=== PATIENT | female | born 1995 | race Caucasian/White ===

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

== ENCOUNTER 2021-01-06 22:29 | Emergency (ER) | payer BC, MEDICAID ==
[2021-01-06] MEDS ORDERED: Sodium Chloride 0.9% 10 ML Syringe FLUSH PRN (22:49)
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
[2021-01-06] MEDS ORDERED: Ondansetron 4 MG/2 ML SDV IV ONE (22:50)
[2021-01-06] MEDS ORDERED: diphenhydrAMINE 50 MG/ML SDV IVPUSH ONE (22:50)
[2021-01-06] MEDS ORDERED: Lactated Ringers 1,000 ML IV ONE (22:50)
[2021-01-06] MEDS ORDERED: Morphine 4 MG/ML Syringe IVPUSH ONE (22:52)
[2021-01-06] MEDS ORDERED: Iopamidol 755 Mg/ML 100 ML Bottle IVPUSH ONE (23:40)
[2021-01-06 23:43] LABS: CHLORIDE,CL 106 mmol/L (98-107); SODIUM,NA 143 mmol/L (136-145)
[2021-01-06 23:44] LABS: ANION GAP 13.5 meq/L (7-15)
[2021-01-06 23:50] VITALS: BP 115/67; PULSE 71
[2021-01-07] MEDS ORDERED: Ketorolac 30 MG/ML SDV IVPUSH ONE (01:30)
== END 2021-01-07 01:43 | disposition home or self-care (01) ==
LOC: LL.ED 22:29
DX: R10.84 Generalized abdominal pain (principal); R11.2 Nausea with vomiting, unspecified
CPT/HCPCS: 36415; 74177; 80053; 81003; 81025; 83605; 83690; 85025; 86140; 96374; 96375; 99284; 99284-25; J1200; J2270; J2405; J7120; Q9967

== ENCOUNTER 2021-01-08 06:38 | Inpatient (IN) | payer BC ==
[2021-01-08] MEDS ORDERED: diphenhydrAMINE 50 MG/ML SDV IVPUSH ONE (06:45)
[2021-01-08] MEDS ORDERED: Lactated Ringers 1,000 ML IV ONE (06:45)
[2021-01-08] MEDS ORDERED: Ondansetron 4 MG/2 ML SDV IV ONE (06:45)
[2021-01-08] MEDS ORDERED: Prochlorperazine 10 MG/2 ML SDV IM ONE (07:03)
[2021-01-08] MEDS ORDERED: HYDROmorphone 1 MG/ML Syringe IVPUSH ONE (07:12)
[2021-01-08 07:49] LABS: CHLORIDE,CL 103 mmol/L (98-107); SODIUM,NA 140 mmol/L (136-145)
[2021-01-08] MEDS ORDERED: Magnesium Sulfate/Water 4 GM in Premix Bag 1 BAG IV ONE (08:23)
[2021-01-08] MEDS ORDERED: Lactated Ringers 1,000 ML IV SCH (08:30)
[2021-01-08] MEDS ORDERED: Ondansetron 4 MG/2 ML SDV IVPUSH ONE (08:31)
[2021-01-08] MEDS ORDERED: Morphine 4 MG/ML Syringe IVPUSH ONE (08:31)
[2021-01-08] MEDS ORDERED: Ketorolac 30 MG/ML SDV IVPUSH ONE (08:32)
[2021-01-08] MEDS: Sodium Chloride 0.9% 10 ML Syringe FLUSH PRN ×3 (08:36→12:17)
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
[2021-01-08] MEDS ORDERED: Dexamethasone 10 MG/ML SDV IVPUSH ONE (09:51)
[2021-01-08] MEDS ORDERED: Metoclopramide 10 MG/2 ML SDV IVPUSH ONE (09:51)
[2021-01-08] MEDS: Morphine 4 MG/ML Syringe IVPUSH SCH ×3 (10:48→17:36)
[2021-01-08] MEDS ORDERED: Naloxone 0.4 MG/ML SDV IVPUSH PRN (11:59)
[2021-01-08] MEDS ORDERED: diphenhydrAMINE 50 MG/ML SDV IVPUSH PRN ×2 (11:59→13:00)
[2021-01-08] MEDS ORDERED: Ondansetron 4 MG/2 ML SDV IVPUSH PRN ×2 (11:59→14:30)
[2021-01-08] MEDS: Pantoprazole 40 MG Vial IVPUSH SCH (12:17)
[2021-01-08] MEDS: NS + KCl 20mEq/L 1,000 ML IV SCH ×2 (12:17→19:01)
[2021-01-08] MEDS ORDERED: Prochlorperazine 10 MG/2 ML SDV IVPUSH PRN (13:00)
[2021-01-08] MEDS ORDERED: diphenhydrAMINE 25 MG Cap PO PRN (13:00)
[2021-01-08] MEDS: Morphine PF 30 MG/30 ML PCA Vial IV PRN (13:45)
[2021-01-09] MEDS: NS + KCl 20mEq/L 1,000 ML IV SCH ×2 (01:46→08:26)
[2021-01-09] MEDS: Morphine PF 30 MG/30 ML PCA Vial IV PRN (01:50)
[2021-01-09 08:01] LABS: CHLORIDE,CL 109 mmol/L (98-107); SODIUM,NA 139 mmol/L (136-145)
[2021-01-09 08:03] LABS: ANION GAP 10.9 meq/L (7-15)
[2021-01-09] MEDS: Pantoprazole 40 MG Vial IVPUSH SCH (08:26)
[2021-01-09 08:33] VITALS: BP 112/68; PULSE 74
[2021-01-09] MEDS ORDERED: Magnesium Oxide 400 MG Tab PO SCH (08:45)
[2021-01-09] MEDS ORDERED: Morphine 2 MG/ML SYRINGE IVPUSH PRN (09:00)
[2021-01-09] MEDS ORDERED: Morphine 4 MG/ML Syringe IVPUSH PRN (09:00)
--- NOTE | 2021-01-09 13:12 | PCM.DCSUM1 ---
Discharge Summary - Discharge Data Discharge Date: 01/09/21 Discharge Disposition: Home, Self-Care 01 Condition: Good - Referral to Home Health Primary Care Physician: PCP Unknown - Discharge Diagnosis/Problem(s) (1) Pancreatitis SNOMED Code(s): 40740040 ICD Code: K85.90 - ACUTE PANCREATITIS WITHOUT NECROSIS OR INFECTION, UNSP Status: Acute Problem Details: Unsure of the cause of her pancreatitis at this time. Still waiting for GGT. Triglycerides are normal. This is completely resolved. Her lipase is back down to normal. Down from [address] scan of the abdomen that was completed in the previous ER visit is unremarkable. Ultrasound of the abdomen is normal. I am unsure of the cause of her pancreatitis at this time. She is a chronic marijuana user but it does not sound like she had cannabinoid hyperemesis prior to the development of this. She does have some chronic abdominal pain. We should consider an EGD upon discharge as well as colonoscopy. Qualifiers: Chronicity: acute Pancreatitis type: idiopathic Acute pancreatitis complication: no infection or necrosis Qualified Code(s): K85.00 - Idiopathic acute pancreatitis without necrosis or infection (2) Hypokalemia SNOMED Code(s): 58912258 ICD Code: E87.6 - HYPOKALEMIA Status: Acute Problem Details: She had mild hypokalemia upon admission of 3.2. She received IV fluids with potassium throughout the night. Her potassium today is 4.8. This is most likely due to nausea and vomiting. We will discharge her home with some supplemental potassium for the next couple of days. Recheck in the clinic. (3) Abdominal pain SNOMED Code(s): 74173666 ICD Code: R10.9 - UNSPECIFIED ABDOMINAL PAIN Status: Acute Problem Details: Abdominal pain from pancreatitis. She also has some chronic abdominal pain. This is resolved after the above therapy treatment for pancreatitis. She should consider an EGD and colonoscopy due to her chronic abdominal pain. Qualifiers: Abdominal location: epigastric Qualified Code(s): R10.13 - Epigastric pain (4) Nausea & vomiting SNOMED Code(s): 77583746 ICD Code: R11.2 - NAUSEA WITH VOMITING, UNSPECIFIED Status: Acute Problem Details: This is completely resolved after the resolution of the pancreatitis. She has not received any antiemetics throughout the night. She has advance her diet from clear liquids to full and she is tolerating it well. We will discharge her home with Zofran. Qualifiers: Vomiting type: unspecified Vomiting Intractability: unspecified Qualified Code(s): R11.2 - Nausea with vomiting, unspecified (5) Hypomagnesemia SNOMED Code(s): 398452431 ICD Code: E83.42 - HYPOMAGNESEMIA Status: Acute Problem Details: Magnesium upon arrival was 1.51.9 on discharge. She received 4 g while she was in the hospital. We will send her home with magnesium for the next couple of days. This is most likely due to the recurrent nausea and vomiting. (6) Total bilirubin, elevated SNOMED Code(s): 023428693661076 ICD Code: R17 - UNSPECIFIED JAUNDICE Status: Acute Problem Details: Her T bili on arrival was 1.3, 1.6 today. Gallbladder ultrasound was unremarkable. This is most likely a transient elevation due to the nausea and vomiting. Have her recheck these in the clinic. - Patient Instructions Diet: Regular Diet as Tolerated, Drink 8-10+ Glasses/Day, No Alcoholic Beverages Other/Special Instructions: Home today. Advance diet as tolerated. Small frequent meals. Nothing rich fatty or spicy. Drink plenty of fluids, especially electrolyte containing materials such as gatorade and or powerade. If you are not urinating every 2 hours you are not drinking enough fluids. Zofran, 1 tablet every 6 hrs as needed for nausea. RX sent to [facility] pharmacy. [place], 1 tablet every 6 hrs with food as needed for pain. Caution sedation and constipation. I would recommend some miralax OTC while taking this mediation. Rx sent to [facility]. Magnesium 1 tablet daily for the next 5 days. Potassium Chloride 1 tablet daily for the next 5 days. Follow up with PCP next week for recheck. Return to the ED if new or worsening symtpoms. - Discharge Plan *PRESCRIPTION DRUG MONITORING PROGRAM REVIEWED*: Not Applicable *COPY OF PRESCRIPTION DRUG MONITORING REPORT IN PATIENT CEDRIC: Not Applicable Prescriptions/Med Rec: Hydrocodone/Acetaminophen [HYDROcodone-Acetaminophen 5-325 MG] 1 each PO Q6HR PRN #10 tab PRN Reason: Pain Potassium Chloride [K-Tab ER] 20 meq PO DAILY #5 tablet.er Magnesium Oxide 400 mg PO DAILY #5 tablet Ondansetron [Ondansetron Odt] 4 mg PO QID PRN #12 tab.rapdis PRN Reason: Nausea/Vomiting Home Medications: Home Meds Hydrocodone/Acetaminophen [HYDROcodone-Acetaminophen 5-325 MG] 1 each PO Q6HR PRN #10 tab 01/09/21 [Rx] Magnesium Oxide 400 mg PO DAILY #5 tablet 01/09/21 [Rx] Ondansetron [Ondansetron Odt] 4 mg PO QID PRN #12 tab.rapdis 01/09/21 [Rx] Potassium Chloride [K-Tab ER] 20 meq PO DAILY #5 tablet.er 01/09/21 [Rx] Patient Handouts: Acute Pancreatitis, [id number], Hypokalemia, Nausea and Vomiting, Adult, [id number], Abdominal Pain, Adult, [id number] Forms: ED Department Discharge Referrals: PCP,Unknown [Primary Care Provider] - - Discharge Summary/Plan Comment DC Time >30 min.: No Total # of Minutes for Discharge Time: 25 - General Info Date of Service: 01/09/21 Admission Dx/Problem (Free Text: Acute pancreatitis idiopathic Nausea vomiting Abdominal pain Hypomagnesemia Hypokalemia. Subjective Update: The patient is slept well throughout the night. She had her morphine [employer] discontinued this morning. She had no nausea or vomiting throughout the night. She has what she relates is some residual soreness to her stomach but really does not have any pain. She has no chest pain or shortness of breath difficulty breathing. No fever no chills. No cough or congestion. No hematuria dysuria urinary frequency. No diarrhea. She has not had a bowel movement for a couple of days but this is not uncommon for her. She does not feel any bloating or distention. She has advanced her diet this morning from clear liquids and had a regular lunch and does not have any new symptoms or difficulty with eating abdominal pain nausea or vomiting. - Patient Data Vitals - Most Recent: Last Vital Signs Temp 98.2 F 01/09/21 08:00 Pulse 74 01/09/21 08:00 Resp 14 01/09/21 08:00 BP 112/68 01/09/21 08:00 Pulse Ox 100 01/09/21 08:00 I&O - Last 24 hours: Intake & Output 01/08/21 01/09/21 01/09/21 22:59 06:59 14:59 Intake Total 1800 240 Balance 1800 240 Lab Results - Last 24 hrs: Laboratory Results - last 24 hr 01/08/21 01/09/21 01/09/21 Range/Units 11:00 07:25 07:25 WBC 15.9 H (4.0-10.2) K/uL RBC 4.14 (3.77-5.09) M/uL Hgb 12.5 D (11.7-15.5) g/dL Hct 37.3 (34.0-46.0) % MCV 90.1 (84.0-98.0) fL MCH 30.2 (28.2-33.3) pg MCHC 33.5 (31.7-36.0) g/dL RDW 12.8 (11.2-14.1) % Plt Count 201 D (150-350) K/uL Neut % (Auto) 77.8 (45.0-80.0) % Lymph % (Auto) 14.8 (10.0-50.0) % [place] % (Auto) 7.2 (2.0-14.0) % Eos % (Auto) 0.1 (0.0-5.0) % Baso % (Auto) 0.1 (0.0-2.0) % Neut # (Auto) 12.39 H (1.40-7.00) K/uL Lymph # (Auto) 2.36 (0.50-3.50) K/uL [place]pton # (Auto) 1.15 H (0.00-1.00) K/uL Eos # (Auto) 0.02 (0.00-0.50) K/uL Baso # (Auto) 0.01 (0.00-0.20) K/uL Sodium 139 (136-145) mmol/L Potassium 4.8 D (3.5-5.1) mmol/L Chloride 109 H (98-107) mmol/L Carbon Dioxide 23.9 (21.0-32.0) mmol/L Anion Gap 10.9 (7-15) meq/L BUN 8 (7-18) mg/dL Creatinine 0.69 (0.51-1.17) mg/dL Est Cr Clr Drug Dosing TNP Estimated GFR (MDRD) > 60 mL/min Glucose 91 (70-99) mg/dL Lactic Acid (0.4-2.0) mmol/L Calcium 8.1 L (8.5-10.1) mg/dL Magnesium 1.9 (1.8-2.4) mg/dL Total Bilirubin 1.6 H (0.2-1.0) mg/dL GGT 5 L (9-64) U/L AST 22 (15-37) U/L ALT 15 (12-78) U/L Alkaline Phosphatase 49 (46-116) IU/L C-Reactive Protein < 0.2 (<=0.9) mg/dL Total Protein 6.0 L (6.4-8.2) g/dL Albumin 3.6 (3.4-5.0) g/dL Amylase 56 (25-115) U/L Lipase 43 L (73-393) U/L 01/09/21 Range/Units 07:25 WBC (4.0-10.2) K/uL RBC (3.77-5.09) M/uL Hgb (11.7-15.5) g/dL Hct (34.0-46.0) % MCV (84.0-98.0) fL MCH (28.2-33.3) pg MCHC (31.7-36.0) g/dL RDW (11.2-14.1) % Plt Count (150-350) K/uL Neut % (Auto) (45.0-80.0) % Lymph % (Auto) (10.0-50.0) % [place] % (Auto) (2.0-14.0) % Eos % (Auto) (0.0-5.0) % Baso % (Auto) (0.0-2.0) % Neut # (Auto) (1.40-7.00) K/uL Lymph # (Auto) (0.50-3.50) K/uL [place]pton # (Auto) (0.00-1.00) K/uL Eos # (Auto) (0.00-0.50) K/uL Baso # (Auto) (0.00-0.20) K/uL Sodium (136-145) mmol/L Potassium (3.5-5.1) mmol/L Chloride (98-107) mmol/L Carbon Dioxide (21.0-32.0) mmol/L Anion Gap (7-15) meq/L BUN (7-18) mg/dL Creatinine (0.51-1.17) mg/dL Est Cr Clr Drug Dosing Estimated GFR (MDRD) mL/min Glucose (70-99) mg/dL Lactic Acid 0.4 (0.4-2.0) mmol/L Calcium (8.5-10.1) mg/dL Magnesium (1.8-2.4) mg/dL Total Bilirubin (0.2-1.0) mg/dL GGT (9-64) U/L AST (15-37) U/L ALT (12-78) U/L Alkaline Phosphatase (46-116) IU/L C-Reactive Protein (<=0.9) mg/dL Total Protein (6.4-8.2) g/dL Albumin (3.4-5.0) g/dL Amylase (25-115) U/L Lipase (73-393) U/L Med Orders - Current: Current Medications Diphenhydramine HCl (Diphenhydramine 50 Mg/Ml Sdv) 25 mg IVPUSH Q6H PRN PRN Reason: Other Diphenhydramine HCl (Diphenhydramine 25 Mg Cap) 25 mg PO Q6H PRN PRN Reason: Itching Potassium Chloride/Sodium Chloride (Normal Saline With 20 Meq Kcl) 1,000 mls @ 150 mls/hr IV ASDIRECTED [facility] Last Admin: 01/09/21 08:26 Dose: 150 mls/hr Documented by: Magnesium Oxide (Magnesium Oxide 400 Mg Tab) 400 mg PO DAILY [facility] Last Admin: 01/09/21 09:13 Dose: 400 mg Documented by: Morphine Sulfate (Morphine 4 Mg/Ml Syringe) 4 mg IVPUSH Q4H PRN PRN Reason: Pain (severe 7-10) Morphine Sulfate (Morphine 2 Mg/Ml Syringe) 2 mg IVPUSH Q4H PRN PRN Reason: Pain (moderate 4-6) Naloxone HCl (Naloxone 0.4 Mg/Ml Sdv) 0.04 mg IVPUSH Q3M PRN PRN Reason: Respiratory Depression Ondansetron HCl (Ondansetron 4 Mg/2 Ml Sdv) 4 mg IVPUSH Q6H PRN PRN Reason: Nausea/Vomiting Pantoprazole Sodium (Pantoprazole 40 Mg Vial) 40 mg IVPUSH DAILY [facility] Last Admin: 01/09/21 08:26 Dose: 40 mg Documented by: Prochlorperazine Edisylate (Prochlorperazine 10 Mg/2 Ml Sdv) 5 mg IVPUSH Q6H PRN PRN Reason: Nausea/Vomiting Sodium Chloride (Sodium Chloride 0.9% 10 Ml Syringe) 10 ml FLUSH ASDIRECTED PRN PRN Reason: Keep Vein Open Last Admin: 01/08/21 12:17 Dose: 10 ml Documented by: Discontinued Medications Dexamethasone (Dexamethasone 10 Mg/Ml Sdv) 8 mg IVPUSH ONETIME ONE Stop: 01/08/21 09:52 Last Admin: 01/08/21 10:42 Dose: 8 mg Documented by: Diphenhydramine HCl (Diphenhydramine 50 Mg/Ml Sdv) 25 mg IVPUSH ONETIME ONE Stop: 01/08/21 06:46 Last Admin: 01/08/21 06:49 Dose: 25 mg Documented by: Hydromorphone HCl (Hydromorphone 1 Mg/Ml Syringe) 1 mg IVPUSH ONETIME ONE Stop: 01/08/21 07:13 Last Admin: 01/08/21 07:15 Dose: 1 mg Documented by: Lactated Ringer's (Ringers, Lactated) 1,000 mls @ 1,000 mls/hr IV .BOLUS ONE Stop: 01/08/21 07:44 Last Admin: 01/08/21 06:49 Dose: 1,000 mls/hr Documented by: Lactated Ringer's (Ringers, Lactated) 1,000 mls @ 500 mls/hr IV ASDIRECTED [facility] Stop: 01/08/21 12:10 Last Admin: 01/08/21 08:27 Dose: 500 mls/hr Documented by: Magnesium Sulfate 4 gm/ Premix 100 mls @ 200 mls/hr IV ONETIME ONE Stop: 01/08/21 08:52 Last Admin: 01/08/21 08:27 Dose: 200 mls/hr Documented by: Ketorolac Tromethamine (Ketorolac 30 Mg/Ml Sdv) 30 mg IVPUSH ONETIME ONE Stop: 01/08/21 08:33 Last Admin: 01/08/21 08:35 Dose: 30 mg Documented by: Metoclopramide HCl (Metoclopramide 10 Mg/2 Ml Sdv) 5 mg IVPUSH ONETIME ONE Stop: 01/08/21 09:52 Last Admin: 01/08/21 10:42 Dose: 5 mg Documented by: Morphine Sulfate (Morphine 4 Mg/Ml Syringe) 4 mg IVPUSH ONETIME ONE Stop: 01/08/21 08:32 Last Admin: 01/08/21 08:36 Dose: 4 mg Documented by: Morphine Sulfate (Morphine 4 Mg/Ml Syringe) 4 mg IVPUSH Q2H SAVANNA Last Admin: 01/08/21 17:36 Dose: Not Given Documented by: Morphine Sulfate (Morphine Pf 30 Mg/30 Ml Wood Coater Vial) 0 mg IV ASDIRECTED PRN; Protocol PRN Reason: Pain Last Admin: 01/09/21 01:50 Dose: 30 mg Documented by: Ondansetron HCl (Ondansetron 4 Mg/2 Ml Sdv) 4 mg IV ONETIME ONE Stop: 01/08/21 06:46 Last Admin: 01/08/21 06:49 Dose: 4 mg Documented by: Ondansetron HCl (Ondansetron 4 Mg/2 Ml Sdv) 4 mg IVPUSH ONETIME ONE Stop: 01/08/21 08:32 Last Admin: 01/08/21 08:36 Dose: 4 mg Documented by: Prochlorperazine Edisylate (Prochlorperazine 10 Mg/2 Ml Sdv) 10 mg IM ONETIME ONE Stop: 01/08/21 07:04 Last Admin: 01/08/21 07:13 Dose: 10 mg Documented by: - Exam General: Reports: Alert, Oriented HEENT: Reports: Pupils Equal, Pupils Reactive, EOMI Neck: Reports: Supple Lungs: Reports: Clear to Auscultation, Normal Respiratory Effort Cardiovascular: Reports: Regular Rate, Regular Rhythm GI/Abdominal Exam: Normal Bowel Sounds, Non-Tender, No Organomegaly, No Distention (Female) Exam: Deferred Rectal (Female) Exam: Deferred Back Exam: Reports: Normal Inspection, Full Range of Motion Extremities: Normal Inspection, Normal Range of Motion, No Pedal Edema, Normal Capillary Refill Skin: Reports: Warm, Dry, Intact Neurological: Reports: No New Focal Deficit Psy/Mental Status: Reports: Alert, Normal Affect, Normal Mood
== END 2021-01-09 13:35 | disposition home or self-care (01) | DRG 282 ==
LOC: LL.ED 06:38 → LL.MS 10:23
PROVIDERS: ADMIT Nurse Practitioner Family; ATTEND Nurse Practitioner Family
DX: K85.00 Idiopathic acute pancreatitis without necrosis or infection (principal); E87.6 Hypokalemia; E83.42 Hypomagnesemia; M19.90 Unspecified osteoarthritis, unspecified site; M54.9 Dorsalgia, unspecified; G89.29 Other chronic pain; F41.9 Anxiety disorder, unspecified; F32.A Depression, unspecified; E87.2 Acidosis; R11.2 Nausea with vomiting, unspecified; F12.20 Cannabis dependence, uncomplicated
CPT/HCPCS: 36415; 76700; 76830; 76856; 80053; 80074; 82150; 82977; 83605; 83615; 83690; 83735; 84100; 84478; 85025; 86140; 86308; 87389; 96372; 96374; 96375; 99222; 99238; 99285-25; A9270-GY; C9113; J0780; J1100; J1170; J1200; J1885; J2270; J2274; J2405; J2765; J3475; J3480; J7120

== ENCOUNTER 2021-01-12 11:25 | Observation (INO) | payer BC ==
[2021-01-12] MEDS ORDERED: Morphine 2 MG/ML SYRINGE IVPUSH ONE ×2 (11:43→12:38)
[2021-01-12] MEDS ORDERED: Ondansetron 4 MG/2 ML SDV IVPUSH ONE (11:44)
[2021-01-12] MEDS: Sodium Chloride 0.9% 10 ML Syringe FLUSH PRN ×4 (11:59→18:42)
[2021-01-12] MEDS ORDERED: LORazepam 2 MG/ML SDV IVPUSH ONE (12:06)
[2021-01-12] MEDS ORDERED: Sodium Chloride 0.9% 1,000 ML IV ONE (12:15)
[2021-01-12] MEDS ORDERED: Promethazine 25 MG/ML SDV IM ONE (12:37)
[2021-01-12 12:49] LABS: ANION GAP 12.5 meq/L (7-15); CHLORIDE,CL 101 mmol/L (98-107); SODIUM,NA 138 mmol/L (136-145)
[2021-01-12] MEDS: Sodium Chloride 0.9% 1,000 ML IV SCH ×2 (13:45→23:10)
[2021-01-12] MEDS ORDERED: Prochlorperazine 10 MG/2 ML SDV IM ONE (14:44)
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
[2021-01-12] MEDS ORDERED: Prochlorperazine 10 MG/2 ML SDV IVPUSH PRN (15:21)
[2021-01-12] MEDS: Ondansetron 4 MG/2 ML SDV IVPUSH SCH ×3 (16:03→23:10)
[2021-01-12] MEDS ORDERED: LORazepam 2 MG/ML SDV IVPUSH PRN (16:23)
[2021-01-12] MEDS ORDERED: Morphine 2 MG/ML SYRINGE IVPUSH PRN (16:26)
[2021-01-12 16:27] LABS: BARBITURATE SCREEN,URINE NEGATIVE (NEGATIVE); BENZODIAZEPINES SCREEN,URINE NEGATIVE (NEGATIVE); EDDP,URINE SCREEN NEGATIVE (NEGATIVE); TCA SCREEN,URINE NEGATIVE (NEGATIVE); THC SCREEN,URINE 50 NG/ML POSITIVE (NEGATIVE)
[2021-01-12 16:29] LABS: BUPRENORPHINE SCREEN,URINE NEGATIVE (NEGATIVE)
[2021-01-12] MEDS: Pantoprazole 40 MG Vial IVPUSH SCH (17:18)
[2021-01-12] MEDS: Ketorolac 15 MG/ML SDV IVPUSH SCH ×2 (17:19→22:01)
[2021-01-12] MEDS ORDERED: Meclizine 25 MG Tab PO PRN (17:35)
[2021-01-13] MEDS: Ketorolac 15 MG/ML SDV IVPUSH SCH (04:04)
[2021-01-13] MEDS: Ondansetron 4 MG/2 ML SDV IVPUSH SCH ×2 (04:04→07:52)
[2021-01-13] MEDS: Pantoprazole 40 MG Vial IVPUSH SCH (06:13)
[2021-01-13] MEDS: Sodium Chloride 0.9% 1,000 ML IV SCH (07:52)
[2021-01-13 08:04] VITALS: BP 113/67; PULSE 80
--- NOTE | 2021-01-13 10:26 | PCM.DCSUM1 ---
Discharge Summary - Hospital Course Free Text/Narrative:: Pt. states that she is feeling better today but still has some upper abdominal pain, much improved from yesterday. Her nausea and vomiting are controlled and she is able to hold down fluids. She has had some apple sauce this AM. Pt. was admitted yesterday with nausea, vomiting and abdominal pain. She was previously admitted last week with the same and had elevation of her pancreatic enzymes. She was admitted with IV fluids, pain medications and antiemetics both times and recovered both times. Since her initial admission, she has had contrast CT scans of and abdomen and pelvis as well as gallbladder US and transvaginal US all of which were negative for acute cause of discomfort. Abd. series obtained yesterday by Dr. Lew was within normal limits. Pancreatitis was thought to be secondary to hyperemesis. Her pancreatic enzymes were normal for this admission. Triglycerides, HIV, hepatitis workup, monospot and other causes of pancreatitis were ruled out. She denies use of alcohol, street drugs or use of OTC medications/supplements. Pt. is a heavy user of marijuana. Marijuana hyperemesis syndrome is thought to be the cause of the patient's symptoms. Dr. Crouch at [facility] was consulted and concurs. CT brain and TSH were ordered at her suggestion, both of which were normal. Diagnosis: Stroke: No - Discharge Data Discharge Date: 01/13/21 Discharge Disposition: Home, Self-Care 01 Condition: Good - Referral to Home Health Primary Care Physician: PCP None - Discharge Diagnosis/Problem(s) (1) Cannabis hyperemesis syndrome concurrent with and due to cannabis abuse SNOMED Code(s): 95271221889386158 ICD Code: F12.188 - CANNABIS ABUSE WITH OTHER CANNABIS-INDUCED DISORDER Status: Acute Priority: High Current Visit: Yes Problem Details: Suspected. As noted above pattern of presentation along with patient's history and imaging studies suggests this could explain patient's abdominal pain and vomiting. Will add head CT/TSH/fasting AM cortisol as suggested by [facility]/ to offer a more complete workup. 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 To follow up with [facility] as outpatient. (2) Dehydration SNOMED Code(s): 81968849 ICD Code: E86.0 - DEHYDRATION Status: Acute Priority: Medium Current Visit: Yes Problem Details: IV fluid replacement ordered. (3) Nausea & vomiting SNOMED Code(s): 67678590 ICD Code: R11.2 - NAUSEA WITH VOMITING, UNSPECIFIED Status: Acute Current Visit: Yes Problem Details: As above. Improved but not completely resolved after multiple antiemetic doses. Scheduled Zofran and PRN Compazine ordered. Qualifiers: Vomiting type: unspecified Vomiting Intractability: unspecified Qualified Code(s): R11.2 - Nausea with vomiting, unspecified - Discharge Plan *PRESCRIPTION DRUG MONITORING PROGRAM REVIEWED*: Not Applicable *COPY OF PRESCRIPTION DRUG MONITORING REPORT IN PATIENT CEDRIC: Not Applicable Home Medications: Home Meds Hydrocodone/Acetaminophen [HYDROcodone-Acetaminophen 5-325 MG] 1 each PO Q6HR PRN #10 tab 01/09/21 [Rx] Magnesium Oxide 400 mg PO DAILY #5 tablet 01/09/21 [Rx] Ondansetron [Ondansetron Odt] 4 mg PO QID PRN #12 tab.rapdis 01/09/21 [Rx] Potassium Chloride [K-Tab ER] 20 meq PO DAILY #5 tablet.er 01/09/21 [Rx] - Discharge Summary/Plan Comment DC Time >30 min.: Yes Total # of Minutes for Discharge Time: 60 Discharge Summary/Plan Comment: Pt. became quite upset when discussing cannabis hyperemesis syndrome as a possible cause for her symptoms. She requested to be discharged. She can continue to use her zofran ODT 1 every 6 hours as needed for nausea/vomiting. She will slowly advance her diet. Strongly suggested abstaining from using marijuana to see if this helps with the symptoms. Ultimately the condition cannot be ruled out without a period of abstinence from cannabis, which is much more favorable than having other unnecessary, more invasive studies such as EGD. Follow-up in clinic in 7-10 days. Return to ER if increased discomfort, unable to hold down fluids, chest pain, or lightheadedness. - General Info Date of Service: 01/13/21 Functional Status: Reports: Pain Controlled, Tolerating Diet, Ambulating - Review of Systems General: Reports: No Symptoms HEENT: Reports: No Symptoms Pulmonary: Reports: No Symptoms Cardiovascular: Reports: No Symptoms Gastrointestinal: Reports: Abdominal Pain. Denies: Diarrhea, Difficulty Swallowing, Nausea, Vomiting Genitourinary: Reports: No Symptoms Musculoskeletal: Reports: No Symptoms Skin: Reports: No Symptoms Neurological: Reports: No Symptoms Psychiatric: Reports: No Symptoms - Patient Data Vitals - Most Recent: Last Vital Signs Temp 37.3 C 01/13/21 08:00 Pulse 80 01/13/21 08:00 Resp 14 01/13/21 08:00 BP 113/67 01/13/21 08:00 Pulse Ox 98 01/13/21 08:00 Weight - Most Recent: 43.726 kg I&O - Last 24 hours: Intake & Output 01/12/21 01/13/21 01/13/21 22:59 06:59 14:59 Intake Total 353 1350 Output Total 150 400 Balance 203 -400 1350 Lab Results - Last 24 hrs: Laboratory Results - last 24 hr 01/12/21 01/12/21 01/12/21 Range/Units 11:55 11:55 11:55 WBC 13.6 H (4.0-10.2) K/uL RBC 5.33 H (3.77-5.09) M/uL Hgb 16.1 H D (11.7-15.5) g/dL Hct 46.4 H (34.0-46.0) % MCV 87.1 D (84.0-98.0) fL MCH 30.2 (28.2-33.3) pg MCHC 34.7 (31.7-36.0) g/dL RDW 12.9 (11.2-14.1) % Plt Count 281 D (150-350) K/uL Neut % (Auto) 75.5 (45.0-80.0) % Lymph % (Auto) 13.9 (10.0-50.0) % Jones % (Auto) 6.4 (2.0-14.0) % Eos % (Auto) 3.8 (0.0-5.0) % Baso % (Auto) 0.4 (0.0-2.0) % Neut # (Auto) 10.27 H (1.40-7.00) K/uL Lymph # (Auto) 1.89 (0.50-3.50) K/uL Jones # (Auto) 0.87 (0.00-1.00) K/uL Eos # (Auto) 0.52 H (0.00-0.50) K/uL Baso # (Auto) 0.06 (0.00-0.20) K/uL Sodium 138 (136-145) mmol/L Potassium 4.0 (3.5-5.1) mmol/L Chloride 101 (98-107) mmol/L Carbon Dioxide 24.5 (21.0-32.0) mmol/L Anion Gap 12.5 (7-15) meq/L BUN 12 (7-18) mg/dL Creatinine 0.81 (0.51-1.17) mg/dL Est Cr Clr Drug Dosing 77.35 mL/min Estimated GFR (MDRD) > 60 mL/min Glucose 101 H (70-99) mg/dL Lactic Acid 1.6 (0.4-2.0) mmol/L Calcium 9.6 D (8.5-10.1) mg/dL Magnesium 2.0 (1.8-2.4) mg/dL Total Bilirubin 0.8 (0.2-1.0) mg/dL AST 18 (15-37) U/L ALT 22 (12-78) U/L Alkaline Phosphatase 75 (46-116) IU/L Total Protein 8.5 H (6.4-8.2) g/dL Albumin 5.2 H (3.4-5.0) g/dL Amylase 112 (25-115) U/L Lipase 258 (73-393) U/L TSH, Ultra Sensitive (0.358-3.740) mIU/mL Specimen Type Urine Color Urine Appearance Urine pH (5.0-9.0) Ur Specific [place] (1.005-1.030) Urine Protein (NEGATIVE) mg/dL Urine Glucose (UA) (NEGATIVE) mg/dL Urine Ketones (NEGATIVE) mg/dL Urine Occult Blood (NEGATIVE) Urine Nitrite (NEGATIVE) Urine Bilirubin (NEGATIVE) Urine Urobilinogen (0.2-1.0) E.U./dL Ur Leukocyte Esterase (NEGATIVE) Urine RBC /HPF Urine WBC /HPF Ur Epithelial Cells /LPF Urine Bacteria (NONE TO FEW) /HPF Urine HCG, Qual Urine Opiates Screen (NEGATIVE) Ur Buprenorphine Scrn (NEGATIVE) Ur Oxycodone Screen (NEGATIVE) Ur EDDP (Meth Metab) (NEGATIVE) Ur Barbiturates Screen (NEGATIVE) Ur Tricyclics Screen (NEGATIVE) Ur Amphetamine Screen (NEGATIVE) U Methamphetamines Scrn (NEGATIVE) Urine MDMA Screen (NEGATIVE) U Benzodiazepines Scrn (NEGATIVE) U Cocaine Metab Screen (NEGATIVE) U Marijuana (THC) Screen (NEGATIVE) 01/12/21 01/12/21 01/12/21 Range/Units 14:23 14:23 14:23 WBC (4.0-10.2) K/uL RBC (3.77-5.09) M/uL Hgb (11.7-15.5) g/dL Hct (34.0-46.0) % MCV (84.0-98.0) fL MCH (28.2-33.3) pg MCHC (31.7-36.0) g/dL RDW (11.2-14.1) % Plt Count (150-350) K/uL Neut % (Auto) (45.0-80.0) % Lymph % (Auto) (10.0-50.0) % Jones % (Auto) (2.0-14.0) % Eos % (Auto) (0.0-5.0) % Baso % (Auto) (0.0-2.0) % Neut # (Auto) (1.40-7.00) K/uL Lymph # (Auto) (0.50-3.50) K/uL Jones # (Auto) (0.00-1.00) K/uL Eos # (Auto) (0.00-0.50) K/uL Baso # (Auto) (0.00-0.20) K/uL Sodium (136-145) mmol/L Potassium (3.5-5.1) mmol/L Chloride (98-107) mmol/L Carbon Dioxide (21.0-32.0) mmol/L Anion Gap (7-15) meq/L BUN (7-18) mg/dL Creatinine (0.51-1.17) mg/dL Est Cr Clr Drug Dosing mL/min Estimated GFR (MDRD) mL/min Glucose (70-99) mg/dL Lactic Acid (0.4-2.0) mmol/L Calcium (8.5-10.1) mg/dL Magnesium (1.8-2.4) mg/dL Total Bilirubin (0.2-1.0) mg/dL AST (15-37) U/L ALT (12-78) U/L Alkaline Phosphatase (46-116) IU/L Total Protein (6.4-8.2) g/dL Albumin (3.4-5.0) g/dL Amylase (25-115) U/L Lipase (73-393) U/L TSH, Ultra Sensitive (0.358-3.740) mIU/mL Specimen Type Urinblad Urine Color Yellow Urine Appearance Clear Urine pH 8.5 (5.0-9.0) Ur Specific [place] 1.020 (1.005-1.030) Urine Protein Negative (NEGATIVE) mg/dL Urine Glucose (UA) Negative (NEGATIVE) mg/dL Urine Ketones 40 H (NEGATIVE) mg/dL Urine Occult Blood Negative (NEGATIVE) Urine Nitrite Negative (NEGATIVE) Urine Bilirubin Negative (NEGATIVE) Urine Urobilinogen 0.2 (0.2-1.0) E.U./dL Ur Leukocyte Esterase Negative (NEGATIVE) Urine RBC 0-5 /HPF Urine WBC 0-5 /HPF Ur Epithelial Cells Rare /LPF Urine Bacteria Not seen (NONE TO FEW) /HPF Urine HCG, Qual Negative Urine Opiates Screen Positive H (NEGATIVE) Ur Buprenorphine Scrn Negative (NEGATIVE) Ur Oxycodone Screen Positive H (NEGATIVE) Ur EDDP (Meth Metab) Negative (NEGATIVE) Ur Barbiturates Screen Negative (NEGATIVE) Ur Tricyclics Screen Negative (NEGATIVE) Ur Amphetamine Screen Negative (NEGATIVE) U Methamphetamines Scrn Negative (NEGATIVE) Urine MDMA Screen Negative (NEGATIVE) U Benzodiazepines Scrn Negative (NEGATIVE) U Cocaine Metab Screen Negative (NEGATIVE) U Marijuana (THC) Screen Positive H (NEGATIVE) 01/13/21 Range/Units 08:02 WBC (4.0-10.2) K/uL RBC (3.77-5.09) M/uL Hgb (11.7-15.5) g/dL Hct (34.0-46.0) % MCV (84.0-98.0) fL MCH (28.2-33.3) pg MCHC (31.7-36.0) g/dL RDW (11.2-14.1) % Plt Count (150-350) K/uL Neut % (Auto) (45.0-80.0) % Lymph % (Auto) (10.0-50.0) % Jones % (Auto) (2.0-14.0) % Eos % (Auto) (0.0-5.0) % Baso % (Auto) (0.0-2.0) % Neut # (Auto) (1.40-7.00) K/uL Lymph # (Auto) (0.50-3.50) K/uL Jones # (Auto) (0.00-1.00) K/uL Eos # (Auto) (0.00-0.50) K/uL Baso # (Auto) (0.00-0.20) K/uL Sodium (136-145) mmol/L Potassium (3.5-5.1) mmol/L Chloride (98-107) mmol/L Carbon Dioxide (21.0-32.0) mmol/L Anion Gap (7-15) meq/L BUN (7-18) mg/dL Creatinine (0.51-1.17) mg/dL Est Cr Clr Drug Dosing mL/min Estimated GFR (MDRD) mL/min Glucose (70-99) mg/dL Lactic Acid (0.4-2.0) mmol/L Calcium (8.5-10.1) mg/dL Magnesium (1.8-2.4) mg/dL Total Bilirubin (0.2-1.0) mg/dL AST (15-37) U/L ALT (12-78) U/L Alkaline Phosphatase (46-116) IU/L Total Protein (6.4-8.2) g/dL Albumin (3.4-5.0) g/dL Amylase (25-115) U/L Lipase (73-393) U/L TSH, Ultra Sensitive 1.838 (0.358-3.740) mIU/mL Specimen Type Urine Color Urine Appearance Urine pH (5.0-9.0) Ur Specific [place] (1.005-1.030) Urine Protein (NEGATIVE) mg/dL Urine Glucose (UA) (NEGATIVE) mg/dL Urine Ketones (NEGATIVE) mg/dL Urine Occult Blood (NEGATIVE) Urine Nitrite (NEGATIVE) Urine Bilirubin (NEGATIVE) Urine Urobilinogen (0.2-1.0) E.U./dL Ur Leukocyte Esterase (NEGATIVE) Urine RBC /HPF Urine WBC /HPF Ur Epithelial Cells /LPF Urine Bacteria (NONE TO FEW) /HPF Urine HCG, Qual Urine Opiates Screen (NEGATIVE) Ur Buprenorphine Scrn (NEGATIVE) Ur Oxycodone Screen (NEGATIVE) Ur EDDP (Meth Metab) (NEGATIVE) Ur Barbiturates Screen (NEGATIVE) Ur Tricyclics Screen (NEGATIVE) Ur Amphetamine Screen (NEGATIVE) U Methamphetamines Scrn (NEGATIVE) Urine MDMA Screen (NEGATIVE) U Benzodiazepines Scrn (NEGATIVE) U Cocaine Metab Screen (NEGATIVE) U Marijuana (THC) Screen (NEGATIVE) Med Orders - Current: Current Medications Sodium Chloride (Normal Saline) 1,000 mls @ 125 mls/hr IV ASDIRECTED SAVANNA Last Admin: 01/13/21 07:52 Dose: 125 mls/hr Documented by: Ketorolac Tromethamine (Ketorolac 15 Mg/Ml Sdv) 15 mg IVPUSH Q6H [facility] Stop: 01/17/21 16:01 Last Admin: 01/13/21 04:04 Dose: 15 mg Documented by: Lorazepam (Lorazepam 2 Mg/Ml Sdv) 0.5 mg IVPUSH Q6H PRN PRN Reason: Nausea Last Admin: 01/12/21 18:42 Dose: 0.5 mg Documented by: Meclizine HCl (Meclizine 25 Mg Tab) 25 mg PO Q6H PRN PRN Reason: Dizziness Last Admin: 01/12/21 18:41 Dose: 25 mg Documented by: Morphine Sulfate (Morphine 2 Mg/Ml Syringe) 2 mg IVPUSH Q4H PRN PRN Reason: Pain Ondansetron HCl (Ondansetron 4 Mg/2 Ml Sdv) 4 mg IVPUSH Q4H [facility] Last Admin: 01/13/21 07:52 Dose: 4 mg Documented by: Pantoprazole Sodium (Pantoprazole 40 Mg Vial) 40 mg IVPUSH Q12H [facility] Last Admin: 01/13/21 06:13 Dose: 40 mg Documented by: Prochlorperazine Edisylate (Prochlorperazine 10 Mg/2 Ml Sdv) 5 mg IVPUSH Q6HR PRN PRN Reason: Nausea Sodium Chloride (Sodium Chloride 0.9% 10 Ml Syringe) 10 ml FLUSH ASDIRECTED PRN PRN Reason: Keep Vein Open Last Admin: 01/12/21 18:42 Dose: 10 ml Documented by: Discontinued Medications Sodium Chloride (Normal Saline) 1,000 mls @ 999 mls/hr IV .BOLUS ONE Stop: 01/12/21 13:15 Last Admin: 01/12/21 12:30 Dose: 999 mls/hr Documented by: Lorazepam (Lorazepam 2 Mg/Ml Sdv) 1 mg IVPUSH ONETIME ONE Stop: 01/12/21 12:07 Last Admin: 01/12/21 12:19 Dose: 1 mg Documented by: Morphine Sulfate (Morphine 2 Mg/Ml Syringe) 2 mg IVPUSH ONETIME ONE Stop: 01/12/21 11:44 Last Admin: 01/12/21 11:52 Dose: 2 mg Documented by: Morphine Sulfate (Morphine 2 Mg/Ml Syringe) 2 mg IVPUSH ONETIME ONE Stop: 01/12/21 12:39 Last Admin: 01/12/21 12:56 Dose: 2 mg Documented by: Ondansetron HCl (Ondansetron 4 Mg/2 Ml Sdv) 4 mg IVPUSH ONETIME ONE Stop: 01/12/21 11:45 Last Admin: 01/12/21 11:56 Dose: 4 mg Documented by: Prochlorperazine Edisylate (Prochlorperazine 10 Mg/2 Ml Sdv) 10 mg IM ONETIME ONE Stop: 01/12/21 14:45 Last Admin: 01/12/21 15:15 Dose: 10 mg Documented by: Promethazine HCl (Promethazine 25 Mg/Ml Sdv) 25 mg IM ONETIME ONE Stop: 01/12/21 12:38 Last Admin: 01/12/21 12:53 Dose: 25 mg Documented by: - Exam General: Reports: Alert, Oriented HEENT: Reports: Pupils Equal Neck: Reports: Supple Lungs: Reports: Clear to Auscultation, Normal Respiratory Effort Cardiovascular: Reports: Regular Rate, Regular Rhythm GI/Abdominal Exam: Normal Bowel Sounds, Soft, Non-Tender, No Organomegaly, No Distention, No Mass (Female) Exam: Deferred Rectal (Female) Exam: Deferred Back Exam: Reports: Normal Inspection, Full Range of Motion Extremities: Normal Inspection, Normal Range of Motion, Non-Tender, No Pedal Edema, Normal Capillary Refill Skin: Reports: Warm, Dry, Intact Neurological: Reports: No New Focal Deficit
== END 2021-01-13 10:50 | disposition home or self-care (01) ==
LOC: LL.ED 11:25 → UNDOADMOB 14:29 → LL.MS 14:29
PROVIDERS: ADMIT Emergency Medicine; ATTEND Emergency Medicine
DX: R11.2 Nausea with vomiting, unspecified (principal); E86.0 Dehydration; F12.188 Cannabis abuse with other cannabis-induced disorder; R10.10 Upper abdominal pain, unspecified; Z88.8 Allergy status to other drugs, medicaments and biological substances; Z79.899 Other long term (current) drug therapy; F41.8 Other specified anxiety disorders
CPT/HCPCS: 36415; 70450; 74019; 80053; 80305; 81001; 81025; 82150; 82533; 83605; 83690; 83735; 84443; 85025; 96372; 96374; 96375; 96376; 99285; A9270; C9113; G0378; J0780; J1885; J2060; J2270; J2405; J2550; J7030; 99217; 99220

== ENCOUNTER 2021-01-14 17:23 | Emergency (ER) | payer BC, MEDICAID ==
[2021-01-14] MEDS ORDERED: LORazepam 2 MG/ML SDV IM ONE (17:30)
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
[2021-01-14 17:47] VITALS: BP 138/82; PULSE 81
[2021-01-14 18:06] LABS: CHLORIDE,CL 101 mmol/L (98-107); SODIUM,NA 140 mmol/L (136-145)
[2021-01-14 18:08] LABS: ANION GAP 24.7 meq/L (7-15)
[2021-01-14] MEDS ORDERED: Sodium Chloride 0.9% 10 ML Syringe FLUSH PRN (18:09)
[2021-01-14] MEDS ORDERED: Lactated Ringers 1,000 ML IV ONE ×2 (18:09→18:10)
[2021-01-14] MEDS ORDERED: Lactated Ringers 1,000 ML IV SCH (18:15)
[2021-01-14] MEDS ORDERED: Magnesium Sulfate/Water 2 GM in Premix Bag 1 BAG IV ONE (18:29)
[2021-01-14] MEDS: Potassium Chloride Riders 10 MEQ in Premix Bag 1 BAG IV SCH ×3 (19:12→21:16)
[2021-01-14] MEDS ORDERED: LORazepam 0.5 MG Tab PO ONE (20:07)
== END 2021-01-14 22:15 | disposition home or self-care (01) ==
LOC: LL.ED 17:23
DX: N17.9 Acute kidney failure, unspecified (principal); R11.2 Nausea with vomiting, unspecified; T40.715A Adverse effect of cannabis, initial encounter; F12.10 Cannabis abuse, uncomplicated; E87.6 Hypokalemia; E83.42 Hypomagnesemia; E80.7 Disorder of bilirubin metabolism, unspecified; Z88.8 Allergy status to other drugs, medicaments and biological substances
CPT/HCPCS: 36415; 80053; 81003; 83690; 83735; 85025; 96365; 96366; 96367; 96368; 96372; 99284; 99284-25; J2060; J3475; J3480; J7120

== ENCOUNTER 2021-07-24 08:23 | Emergency (ER) | payer BC, MEDICAID ==
[2021-07-24] MEDS ORDERED: Ondansetron 4 MG/2 ML SDV IVPUSH ONE (09:00)
[2021-07-24] MEDS ORDERED: Sodium Chloride 0.9% 1,000 ML IV ONE (09:00)
[2021-07-24] MEDS: Sodium Chloride 0.9% 10 ML Syringe FLUSH PRN ×2 (09:19→12:07)
[2021-07-24] MEDS ORDERED: Ondansetron 4 MG/2 ML SDV ONE (09:27)
[2021-07-24 10:02] LABS: CHLORIDE,CL 98 mmol/L (98-107); SODIUM,NA 139 mmol/L (136-145)
[2021-07-24 10:03] LABS: ANION GAP 20.2 meq/L (7-15)
[2021-07-24] MEDS ORDERED: Potassium Bicarbonate/Cit Ac 20 MEQ Effervescent Tab PO ONE ×3 (10:46→12:00)
[2021-07-24] MEDS ORDERED: Sodium Chloride 0.9% 1,000 ML IV SCH (11:00)
[2021-07-24] MEDS: Potassium Chloride Riders 10 MEQ in Premix Bag 1 BAG IV SCH ×3 (11:09→13:55)
[2021-07-24 11:45] LABS: BARBITURATE SCREEN,URINE NEGATIVE (NEGATIVE); BENZODIAZEPINES SCREEN,URINE NEGATIVE (NEGATIVE); EDDP,URINE SCREEN NEGATIVE (NEGATIVE); TCA SCREEN,URINE NEGATIVE (NEGATIVE); THC SCREEN,URINE 50 NG/ML POSITIVE (NEGATIVE)
[2021-07-24 11:46] LABS: BUPRENORPHINE SCREEN,URINE NEGATIVE (NEGATIVE)
[2021-07-24] MEDS ORDERED: Iopamidol 612 MG/ML 100 ML Bottle IVPUSH STA (12:57)
[2021-07-24] MEDS ORDERED: Potassium Chloride 20 MEQ Tab.ER PO ONE (15:01)
[2021-07-24 17:06] VITALS: BP 106/78; PULSE 84
== END 2021-07-24 15:55 | disposition home or self-care (01) ==
LOC: LL.ED 08:23
DX: R10.13 Epigastric pain (principal); R11.2 Nausea with vomiting, unspecified; E87.6 Hypokalemia; E86.0 Dehydration; Z88.1 Allergy status to other antibiotic agents
CPT/HCPCS: 36415; 74178; 76705; 80053; 80305; 81001; 81025; 82150; 82248; 82784; 83516; 83605; 83690; 83735; 84132; 85025; 96361; 96374; 99284; A9270; J2405; J3480; J3490; J7030; Q9967; 82247

== ENCOUNTER 2021-07-25 08:57 | Emergency (ER) | payer BC ==
[2021-07-25] MEDS ORDERED: Ondansetron 4 MG/2 ML SDV IVPUSH ONE (08:58)
[2021-07-25] MEDS ORDERED: LORazepam 2 MG/ML SDV IVPUSH ONE (08:58)
[2021-07-25] MEDS ORDERED: Sodium Chloride 0.9% 1,000 ML IV SCH (09:00)
[2021-07-25] MEDS: Sodium Chloride 0.9% 10 ML Syringe FLUSH PRN ×3 (09:14→13:19)
[2021-07-25 09:31] LABS: CHLORIDE,CL 103 mmol/L (98-107); SODIUM,NA 140 mmol/L (136-145)
[2021-07-25 09:34] LABS: ANION GAP 21.1 meq/L (7-15)
[2021-07-25] MEDS ORDERED: Prochlorperazine 10 MG/2 ML SDV IM ONE (10:41)
[2021-07-25] MEDS ORDERED: Sodium Chloride 0.9% 1,000 ML IV ONE (10:56)
[2021-07-25] MEDS ORDERED: Morphine 2 MG/ML SYRINGE IVPUSH PRN (11:37)
[2021-07-25] MEDS ORDERED: Morphine 2 MG/ML SYRINGE IVPUSH ONE (11:49)
[2021-07-25] MEDS ORDERED: Metoclopramide 10 MG/2 ML SDV IVPUSH ONE (11:49)
[2021-07-25 13:17] VITALS: BP 108/57; PULSE 64
== END 2021-07-25 14:30 ==
LOC: LL.ED 08:57
DX: R10.13 Epigastric pain (principal); R11.2 Nausea with vomiting, unspecified; Z88.1 Allergy status to other antibiotic agents
CPT/HCPCS: 36415; 74019; 80053; 81001; 82150; 83605; 83690; 83735; 85025; 96361; 96372; 96374; 96375; 99285; J0780; J2060; J2270; J2405; J2765; J3490; J7030; 99284

== ENCOUNTER 2022-03-29 13:20 | Observation (INO) | payer BC, MEDICAID ==
[2022-03-29] MEDS ORDERED: Ondansetron 4 MG/2 ML SDV ONE (13:30)
[2022-03-29] MEDS ORDERED: Sodium Chloride 0.9% 1,000 ML IV ONE ×3 (13:35→17:55)
[2022-03-29] MEDS ORDERED: Ondansetron 4 MG/2 ML SDV IVPUSH ONE ×2 (13:35→20:31)
[2022-03-29 13:54] LABS: ANION GAP 22.8 meq/L (7-15)
[2022-03-29] MEDS ORDERED: Promethazine 25 MG/ML SDV IM ONE ×2 (13:56→20:31)
[2022-03-29] MEDS ORDERED: Potassium Bicarbonate/Cit Ac 20 MEQ Effervescent Tab PO ONE (14:22)
[2022-03-29] MEDS ORDERED: Ketorolac 30 MG/ML SDV IVPUSH ONE (14:29)
[2022-03-29] MEDS ORDERED: Morphine 2 MG/ML SYRINGE IVPUSH ONE (14:37)
[2022-03-29] MEDS: Potassium Chloride Riders 10 MEQ in Premix Bag 1 BAG IV SCH ×5 (14:45→19:13)
[2022-03-29 17:36] LABS: BARBITURATE SCREEN,URINE NEGATIVE (NEGATIVE); BENZODIAZEPINES SCREEN,URINE NEGATIVE (NEGATIVE); EDDP,URINE SCREEN NEGATIVE (NEGATIVE); TCA SCREEN,URINE NEGATIVE (NEGATIVE); THC SCREEN,URINE 50 NG/ML POSITIVE (NEGATIVE)
[2022-03-29 17:40] LABS: BUPRENORPHINE SCREEN,URINE NEGATIVE (NEGATIVE)
[2022-03-29 17:41] LABS: ANION GAP 22.1 meq/L (7-15)
[2022-03-29 20:26] LABS: ANION GAP 20.4 meq/L (7-15)
[2022-03-29] MEDS ORDERED: Magnesium Oxide 400 MG Tab PO ONE (20:30)
[2022-03-29] MEDS ORDERED: Ketorolac 15 MG/ML SDV IVPUSH PRN (22:17)
[2022-03-29] MEDS ORDERED: LORazepam 2 MG/ML SDV IVPUSH ONE (22:23)
[2022-03-29] MEDS: Lactated Ringers 1,000 ML IV SCH (23:01)
[2022-03-30] MEDS ORDERED: Promethazine 25 MG/ML SDV IM PRN (02:00)
[2022-03-30] MEDS: Ondansetron 4 MG/2 ML SDV IVPUSH PRN ×3 (04:20→17:58)
[2022-03-30] MEDS: LORazepam 2 MG/ML SDV IVPUSH SCH ×2 (07:15→13:37)
[2022-03-30] MEDS: Lactated Ringers 1,000 ML IV SCH ×2 (07:24→15:18)
[2022-03-30 07:52] LABS: ANION GAP 12.7 meq/L (7-15)
[2022-03-30] MEDS ORDERED: Potassium Bicarbonate/Cit Ac 20 MEQ Effervescent Tab PO ONE ×2 (14:15→17:55)
[2022-03-30] MEDS ORDERED: LORazepam 2 MG/ML SDV IVPUSH PRN (17:55)
[2022-03-31] MEDS: Lactated Ringers 1,000 ML IV SCH (00:59)
[2022-03-31 07:51] LABS: ANION GAP 9.4 meq/L (7-15)
[2022-03-31 11:57] VITALS: BP 112/76; PULSE 64
== END 2022-03-31 12:30 | disposition home or self-care (01) ==
LOC: LL.ED 13:20 → LL.MS 21:50
PROVIDERS: ADMIT Emergency Medicine; ATTEND Emergency Medicine
DX: R11.15 Cyclical vomiting syndrome unrelated to migraine (principal); E86.0 Dehydration; E83.42 Hypomagnesemia; E87.6 Hypokalemia; F12.10 Cannabis abuse, uncomplicated; R46.89 Other symptoms and signs involving appearance and behavior; K58.9 Irritable bowel syndrome, unspecified; M19.90 Unspecified osteoarthritis, unspecified site; M54.9 Dorsalgia, unspecified; G89.29 Other chronic pain; J93.9 Pneumothorax, unspecified; Z79.899 Other long term (current) drug therapy; Z88.1 Allergy status to other antibiotic agents
CPT/HCPCS: 36415; 80048; 80053; 80305-QW; 81003; 82009; 83605; 83735; 84703; 85025; 96361; 96365; 96366; 96367; 96368; 96372; 96375; 96376; 99284-25; A9270-GY; G0378; J1885; J2060; J2270; J2405; J2550; J3475; J3480; J7030; J7120

== ENCOUNTER 2022-06-11 03:13 | Inpatient (IN) | payer MEDICAID ==
[2022-06-11] MEDS ORDERED: Ondansetron 4 MG/2 ML SDV IVPUSH ONE (03:23)
[2022-06-11] MEDS ORDERED: Sodium Chloride 0.9% 1,000 ML IV ONE (03:31)
[2022-06-11] MEDS: Sodium Chloride 0.9% 10 ML Syringe FLUSH PRN ×3 (03:34→23:00)
[2022-06-11 03:53] LABS: ANION GAP 22.4 meq/L (7-15); CHLORIDE,CL 101 mmol/L (98-107); ESTIMATED GFR 71 mL/min (>=60); SODIUM,NA 139 mmol/L (136-145)
[2022-06-11] MEDS ORDERED: Potassium Chloride 10 MEQ Tab.ER PO ONE (04:03)
[2022-06-11 04:17] LABS: CORONAVIRUS COVID-19 NAA NEGATIVE (NEGATIVE); RESPIRATORY SYNCYTIAL VIR NAA NEGATIVE (NEGATIVE)
[2022-06-11] MEDS ORDERED: Potassium Chloride 10 MEQ Tab.ER ONE ×2 (04:22→04:50)
[2022-06-11] MEDS ORDERED: Iopamidol 612 MG/ML 100 ML Bottle IVPUSH STA (04:30)
[2022-06-11] MEDS ORDERED: Sodium Chloride 0.9% 1,000 ML IV SCH (05:00)
[2022-06-11] MEDS ORDERED: Ondansetron 4 MG/2 ML SDV IVPUSH PRN (05:18)
[2022-06-11] MEDS ORDERED: LORazepam 0.5 MG Tab PO PRN (05:18)
[2022-06-11] MEDS: Piperacillin/Tazobactam 3.375 GM in Sodium Chloride 0.9% 100 ML IV SCH ×4 (05:50→23:00)
[2022-06-12] MEDS: Piperacillin/Tazobactam 3.375 GM in Sodium Chloride 0.9% 100 ML IV SCH ×2 (05:08→10:37)
[2022-06-12] MEDS: Sodium Chloride 0.9% 10 ML Syringe FLUSH PRN (05:09)
[2022-06-12 07:49] LABS: ANION GAP 8.1 meq/L (7-15)
[2022-06-12] MEDS ORDERED: hydrOXYzine Pamoate 25 MG Cap PO ONE (09:18)
[2022-06-12] MEDS ORDERED: FLUoxetine 20 MG Cap PO SCH (09:30)
[2022-06-12 13:19] VITALS: BP 115/79; PULSE 60
== END 2022-06-12 13:12 | disposition home or self-care (01) | DRG 871 ==
LOC: LL.ED 03:13 → LL.MS 04:20
PROVIDERS: ADMIT Emergency Medicine; ATTEND Emergency Medicine
DX: A41.9 Sepsis, unspecified organism (principal); J69.0 Pneumonitis due to inhalation of food and vomit; Z20.822 Contact with and (suspected) exposure to COVID-19; K59.09 Other constipation; F41.9 Anxiety disorder, unspecified; F32.A Depression, unspecified; Z87.81 Personal history of (healed) traumatic fracture; Z88.1 Allergy status to other antibiotic agents; Z79.899 Other long term (current) drug therapy; Z87.09 Personal history of other diseases of the respiratory system
CPT/HCPCS: 0241U; 36415; 74177; 80048; 80053; 81001; 81025; 83605; 83690; 83735; 85025; 87491; 87563; 87591; 93005; 96361; 96374; 99285-25; A9270-GY; J2405; J2543; J3490; J7030; Q0177; Q9967

== ENCOUNTER 2022-11-20 02:19 | Emergency (ER) | payer MEDICAID ==
[2022-11-20] MEDS ORDERED: Sodium Chloride 0.9% 10 ML Syringe FLUSH PRN (02:25)
[2022-11-20] MEDS ORDERED: Ondansetron 4 MG/2 ML SDV IVPUSH PRN (02:25)
[2022-11-20 02:52] LABS: BASOPHILS ABSOLUTE AUTO 0.07 K/uL (0.00-0.20); BASOPHILS PERCENT AUTO 0.4 % (0.0-2.0); EOSINOPHILS ABSOLUTE AUTO 0.51 K/uL (0.00-0.50); HEMATOCRIT 43.4 % (34.0-46.0); HEMOGLOBIN 14.8 g/dL (11.7-15.5); LYMPHOCYTES PERCENT AUTO 16.5 % (10.0-50.0); MEAN CORPUSCULAR HEMOGLOBIN 31.1 pg (28.2-33.3); MEAN CORPUSCULAR HGB CONC 34.1 g/dL (31.7-36.0); MEAN CORPUSCULAR VOLUME 91.2 fL (84.0-98.0); MONOCYTES ABSOLUTE AUTO 1.08 K/uL (0.00-1.00); MONOCYTES PERCENT AUTO 6.4 % (2.0-14.0); NEUTROPHILS PERCENT AUTO 73.7 % (45.0-80.0); PLATELET COUNT,PLT 272 K/uL (150-350); RED BLOOD CELL COUNT 4.76 M/uL (3.77-5.09)
[2022-11-20 03:11] LABS: ALANINE AMINOTRANSFERASE,ALT 20 U/L (12-78); ALBUMIN 4.4 g/dL (3.4-5.0); ALKALINE PHOSPHATASE 86 IU/L (46-116); ANION GAP 14.6 meq/L (7-15); ASPARTATE AMNIOTRANSFERASE,AST 31 U/L (15-37); BILIRUBIN TOTAL 0.8 mg/dL (0.2-1.0); BLOOD UREA NITROGEN,BUN 16 mg/dL (7-18); CALCIUM 9.6 mg/dL (8.5-10.1); CARBON DIOXIDE,CO2 23.4 mmol/L (21.0-32.0); CHLORIDE,CL 103 mmol/L (98-107); GLUCOSE RANDOM 125 mg/dL (70-99); LIPASE 31 U/L (16-77); POTASSIUM,K 4.1 mmol/L (3.5-5.1); PROTEIN TOTAL,TP 8.2 g/dL (6.4-8.2); SODIUM,NA 141 mmol/L (136-145)
[2022-11-20 03:13] LABS: ESTIMATED GFR 105 mL/min (>=60)
[2022-11-20] MEDS ORDERED: Haloperidol Lactate 5 MG/ML SDV IVPUSH ONE (03:31)
[2022-11-20] MEDS ORDERED: Iopamidol 612 MG/ML 100 ML Bottle IVPUSH STA (03:45)
[2022-11-20 04:56] LABS: APPEARANCE,URINE CLEAR; BILIRUBIN,URINE NEGATIVE (NEGATIVE); COLOR,URINE YELLOW; GLUCOSE,URINE NEGATIVE (NEGATIVE); KETONES,URINE 15 mg/dL (NEGATIVE); LEUKOCYTE ESTERASE,URINE NEGATIVE (NEGATIVE); NITRITE,URINE NEGATIVE (NEGATIVE); OCCULT BLOOD,URINE NEGATIVE (NEGATIVE); PH,URINE 8.5 (5.0-9.0); PROTEIN,URINE NEGATIVE (NEGATIVE); UROBILINOGEN,URINE 0.2 E.U./dL (0.2-1.0)
[2022-11-20 05:04] VITALS: PULSE 60
[2022-11-20 05:44] VITALS: BP 126/87
== END 2022-11-20 05:54 | disposition home or self-care (01) ==
LOC: LL.ED 02:19
DX: N83.201 Unspecified ovarian cyst, right side (principal); R11.10 Vomiting, unspecified; F12.10 Cannabis abuse, uncomplicated; Z88.1 Allergy status to other antibiotic agents
CPT/HCPCS: 36415; 74177; 80053; 81003; 83690; 84703; 85025; 93005; 96374; 96375; 99284; J1630; J2405; Q9967; J3490

== ENCOUNTER 2023-10-29 02:27 | Emergency (ER) | payer BC ==
[2023-10-29] MEDS: Sodium Chloride 0.9% 10 ML Syringe FLUSH PRN (02:37)
[2023-10-29] MEDS: Ondansetron 4 MG/2 ML SDV IVPUSH ONE (02:37)
[2023-10-29] MEDS: Sodium Chloride 0.9% 1,000 ML IV SCH (03:14)
[2023-10-29 03:16] LABS: HEMATOCRIT 44.4 % (34.0-46.0); HEMOGLOBIN 15.7 g/dL (11.7-15.5); MEAN CORPUSCULAR HEMOGLOBIN 31.3 pg (28.2-33.3); MEAN CORPUSCULAR HGB CONC 35.4 g/dL (31.7-36.0); MEAN CORPUSCULAR VOLUME 88.4 fL (84.0-98.0); PLATELET COUNT,PLT 339 K/uL (150-350); RED BLOOD CELL COUNT 5.02 M/uL (3.77-5.09); RED CELL DISTRIBUTION WIDTH 12.8 % (11.2-14.1)
[2023-10-29] MEDS: Promethazine 25 MG/ML SDV IM ONE (03:18)
[2023-10-29 03:31] LABS: BAND PERCENT MAN 1; BASOPHILS PERCENT MAN 0; EOSINOPHILS PERCENT MAN 0; LYMPHOCYTES % ATYPICAL MANUAL 0; LYMPHOCYTES PERCENT MAN 8; MONOCYTES PERCENT MAN 0; SEG NEUTROPHILS PERCENT MAN 91
[2023-10-29 03:42] LABS: BLOOD UREA NITROGEN,BUN 14 mg/dL (7-18); CALCIUM 9.7 mg/dL (8.5-10.1); CARBON DIOXIDE,CO2 18.5 mmol/L (21.0-32.0); CHLORIDE,CL 97 mmol/L (98-107); CREATININE 0.85 mg/dL (0.51-1.17); GLUCOSE RANDOM 147 mg/dL (70-99); SODIUM,NA 139 mmol/L (136-145)
[2023-10-29 03:48] LABS: ANION GAP 26.4 meq/L (7-15); ESTIMATED GFR 97 mL/min (>=60); POTASSIUM,K 2.9 mmol/L (3.5-5.1)
[2023-10-29] MEDS ORDERED: Promethazine 25 MG/ML SDV IM PRN (03:55)
[2023-10-29] MEDS: Potassium Chloride Riders 10 MEQ in Premix Bag 1 BAG IV ONE (04:05)
[2023-10-29] MEDS: Potassium Bicarbonate/Cit Ac 20 MEQ Effervescent Tab PO ONE (04:06)
[2023-10-29] MEDS: Promethazine 12.5 MG in Sodium Chloride 0.9% 100 ML IV ONE (04:35)
[2023-10-29] MEDS: Ondansetron 4 MG/2 ML SDV IVPUSH PRN (05:08)
[2023-10-29] MEDS: Ketorolac 30 MG/ML SDV IVPUSH ONE (05:17)
[2023-10-29 08:18] LABS: BLOOD UREA NITROGEN,BUN 14 mg/dL (7-18); CALCIUM 8.9 mg/dL (8.5-10.1); CARBON DIOXIDE,CO2 26.4 mmol/L (21.0-32.0); CHLORIDE,CL 102 mmol/L (98-107); CREATININE 0.74 mg/dL (0.51-1.17); GLUCOSE RANDOM 107 mg/dL (70-99); POTASSIUM,K 3.3 mmol/L (3.5-5.1); SODIUM,NA 142 mmol/L (136-145)
[2023-10-29 08:19] LABS: ANION GAP 16.9 meq/L (7-15); ESTIMATED GFR 114 mL/min (>=60)
[2023-10-29 16:15] VITALS: BP 102/67; PULSE 84
== END 2023-10-29 09:40 | disposition home or self-care (01) ==
LOC: LL.ED 02:27
DX: K52.9 Noninfective gastroenteritis and colitis, unspecified (principal); D72.829 Elevated white blood cell count, unspecified; E86.0 Dehydration; E87.6 Hypokalemia; Z88.1 Allergy status to other antibiotic agents; Z79.899 Other long term (current) drug therapy
CPT/HCPCS: 36415; 74176; 80048; 81025; 85025; 96361; 96365; 96372; 96375; 96376; 99284-25; A9270-GY; J1885; J2405; J2550; J3480; J3490; J7030

== ENCOUNTER 2024-02-03 09:40 | Emergency (ER) | payer BC ==
[2024-02-03] MEDS ORDERED: Sodium Chloride 0.9% 10 ML Syringe FLUSH PRN (09:49)
[2024-02-03] MEDS: Ondansetron 4 MG/2 ML SDV IVPUSH ONE (10:06)
[2024-02-03] MEDS: Promethazine 25 MG/ML SDV IM ONE (10:06)
[2024-02-03] MEDS: Ketorolac 15 MG/ML SDV IVPUSH ONE (10:06)
[2024-02-03 10:14] LABS: BASOPHILS ABSOLUTE AUTO 0.06 K/uL (0.00-0.20); BASOPHILS PERCENT AUTO 0.3 % (0.0-2.0); EOSINOPHILS ABSOLUTE AUTO 0.41 K/uL (0.00-0.50); EOSINOPHILS PERCENT AUTO 2.1 % (0.0-5.0); HEMATOCRIT 44.7 % (34.0-46.0); HEMOGLOBIN 15.4 g/dL (11.7-15.5); IMMATURE GRAN ABSOLUTE AUTO 0.05 10^3/uL (0.00-0.50); IMMATURE GRAN PERCENT AUTO 0.3 % (0.0-5.0); LYMPHOCYTES ABSOLUTE AUTO 2.14 K/uL (0.50-3.50); LYMPHOCYTES PERCENT AUTO 11.2 % (10.0-50.0); MEAN CORPUSCULAR HEMOGLOBIN 30.8 pg (28.2-33.3); MEAN CORPUSCULAR HGB CONC 34.5 g/dL (31.7-36.0); MEAN CORPUSCULAR VOLUME 89.4 fL (84.0-98.0); MONOCYTES ABSOLUTE AUTO 1.02 K/uL (0.00-1.00); MONOCYTES PERCENT AUTO 5.3 % (2.0-14.0); NEUTROPHILS ABSOLUTE AUTO 15.51 K/uL (1.40-7.00); NEUTROPHILS PERCENT AUTO 80.8 % (45.0-80.0); PLATELET COUNT,PLT 302 K/uL (150-350); RED CELL DISTRIBUTION WIDTH 12.5 % (11.2-14.1); WHITE BLOOD CELL COUNT,WBC 19.2 K/uL (4.0-10.2)
[2024-02-03] MEDS: Sodium Chloride 0.9% 1,000 ML IV ONE (10:17)
[2024-02-03 10:33] LABS: ALANINE AMINOTRANSFERASE,ALT 17 U/L (12-78); ALBUMIN 4.7 g/dL (3.4-5.0); ALKALINE PHOSPHATASE 133 IU/L (46-116); ANION GAP 16.9 meq/L (7-15); ASPARTATE AMNIOTRANSFERASE,AST 15 U/L (15-37); BILIRUBIN TOTAL 0.8 mg/dL (0.2-1.0); BLOOD UREA NITROGEN,BUN 15 mg/dL (7-18); CALCIUM 9.7 mg/dL (8.5-10.1); CARBON DIOXIDE,CO2 22.1 mmol/L (21.0-32.0); CHLORIDE,CL 101 mmol/L (98-107); CREATININE 0.88 mg/dL (0.51-1.17); GLUCOSE RANDOM 126 mg/dL (70-99); MAGNESIUM 1.6 mg/dL (1.8-2.4); POTASSIUM,K 3.5 mmol/L (3.5-5.1); PROTEIN TOTAL,TP 9.1 g/dL (6.4-8.2); SODIUM,NA 140 mmol/L (136-145)
[2024-02-03 10:34] LABS: ESTIMATED GFR 93 mL/min (>=60)
[2024-02-03] MEDS: Haloperidol Lactate 5 MG/ML SDV IV ONE (10:35)
[2024-02-03] MEDS: LORazepam 2 MG/ML SDV IVPUSH ONE (13:16)
[2024-02-03 13:29] VITALS: BP 125/87; PULSE 72
== END 2024-02-03 12:30 | disposition home or self-care (01) ==
LOC: LL.ED 09:40
DX: R11.2 Nausea with vomiting, unspecified (principal); F12.10 Cannabis abuse, uncomplicated; E83.42 Hypomagnesemia; Z88.1 Allergy status to other antibiotic agents; Z79.899 Other long term (current) drug therapy
CPT/HCPCS: 36415; 80053; 82150; 83605; 83735; 84703; 85025; 96361; 96365; 96372; 96375; 99284-25; J1630; J1885; J2405; J2550; J3475; J7030

== ENCOUNTER 2024-02-05 04:59 | Emergency (ER) | payer BC ==
[2024-02-05 05:14] VITALS: BP 122/77; PULSE 72
[2024-02-05] MEDS: Promethazine 25 MG/ML SDV IM ONE (05:39)
[2024-02-05] MEDS: Acetaminophen 325 MG Tab PO ONE (06:13)
== END 2024-02-05 06:50 | disposition home or self-care (01) ==
LOC: LL.ED 04:59
DX: A08.4 Viral intestinal infection, unspecified (principal); Z79.899 Other long term (current) drug therapy; Z88.1 Allergy status to other antibiotic agents
CPT/HCPCS: 96372; 99283; A9270-GY; J2550

== ENCOUNTER 2024-09-28 04:55 | Emergency (ER) | payer BC ==
[2024-09-28] MEDS ORDERED: Sodium Chloride 0.9% 10 ML Syringe FLUSH PRN (05:17)
[2024-09-28 05:26] LABS: BASOPHILS ABSOLUTE AUTO 0.01 K/uL (0.00-0.20); BASOPHILS PERCENT AUTO 0.1 % (0.0-2.0); EOSINOPHILS ABSOLUTE AUTO 0.00 K/uL (0.00-0.50); EOSINOPHILS PERCENT AUTO 0.0 % (0.0-5.0); IMMATURE GRAN ABSOLUTE AUTO 0.03 10^3/uL (0.00-0.04); IMMATURE GRAN PERCENT AUTO 0.2 % (0.0-0.4); LYMPHOCYTES ABSOLUTE AUTO 0.89 K/uL (0.50-3.50); LYMPHOCYTES PERCENT AUTO 4.7 % (10.0-50.0); MONOCYTES ABSOLUTE AUTO 0.70 K/uL (0.00-1.00); MONOCYTES PERCENT AUTO 3.7 % (2.0-14.0); NEUTROPHILS ABSOLUTE AUTO 17.40 K/uL (1.40-7.00); NEUTROPHILS PERCENT AUTO 91.3 % (45.0-80.0); PLATELET COUNT,PLT 271 K/uL (150-350); RED BLOOD CELL COUNT 5.30 M/uL (3.77-5.09); RED CELL DISTRIBUTION WIDTH 13.4 % (11.2-14.1); WHITE BLOOD CELL COUNT,WBC 19.0 K/uL (4.0-10.2)
[2024-09-28 05:26] LABS: APPEARANCE,URINE CLEAR; GLUCOSE,URINE NEGATIVE (NEGATIVE); OCCULT BLOOD,URINE NEGATIVE (NEGATIVE)
[2024-09-28] MEDS: Promethazine 25 MG/ML SDV IM ONE (05:35)
[2024-09-28 05:37] LABS: EPITHELIAL CELLS,URINE FEW /LPF
[2024-09-28 05:43] LABS: ALANINE AMINOTRANSFERASE,ALT 17 U/L (12-78); ASPARTATE AMNIOTRANSFERASE,AST 15 U/L (15-37); BILIRUBIN TOTAL 1.8 mg/dL (0.2-1.0); BLOOD UREA NITROGEN,BUN 13 mg/dL (7-18); CARBON DIOXIDE,CO2 20.6 mmol/L (21.0-32.0); CHLORIDE,CL 100 mmol/L (98-107); CREATININE 0.97 mg/dL (0.51-1.17); GLUCOSE RANDOM 138 mg/dL (70-99); POTASSIUM,K 3.2 mmol/L (3.5-5.1); PROTEIN TOTAL,TP 9.2 g/dL (6.4-8.2); SODIUM,NA 139 mmol/L (136-145)
[2024-09-28 05:44] LABS: ESTIMATED GFR 82 mL/min (>=60)
[2024-09-28] MEDS: Ketorolac 15 MG/ML SDV IVPUSH ONE (05:44)
[2024-09-28 05:49] LABS: AMPHETAMINES SCREEN, URINE NEGATIVE (NEGATIVE); COCAINE METABOLITES,URINE NEGATIVE (NEGATIVE); EDDP,URINE SCREEN NEGATIVE (NEGATIVE); METHAMPHETAMINES SCREEN, URINE NEGATIVE (NEGATIVE); TCA SCREEN,URINE NEGATIVE (NEGATIVE); THC SCREEN,URINE 50 NG/ML POSITIVE (NEGATIVE)
[2024-09-28 05:50] LABS: BUPRENORPHINE SCREEN,URINE NEGATIVE (NEGATIVE); OXYCODONE SCREEN,URINE NEGATIVE (NEGATIVE)
[2024-09-28] MEDS: Potassium Bicarbonate/Cit Ac 20 MEQ Effervescent Tab PO ONE ×2 (06:26→07:21)
[2024-09-28 08:05] VITALS: BP 105/61; PULSE 80
== END 2024-09-28 08:21 | disposition home or self-care (01) ==
LOC: LL.ED 04:55
DX: R11.15 Cyclical vomiting syndrome unrelated to migraine (principal); Z88.8 Allergy status to other drugs, medicaments and biological substances; Z79.899 Other long term (current) drug therapy
CPT/HCPCS: 36415; 80053; 80305-QW; 81001; 81025; 83605; 83690; 83735; 85025; 96361; 96372; 96374; 96375; 99284-25; A9270-GY; J1630; J1885; J2550; J7030